=== PATIENT | male | born 1960 | race Caucasian/White ===

== ENCOUNTER 2020-09-06 01:40 | Emergency (ER) | payer MEDICARE ==
[~2020-09-06 01:40] MED LIST: IBUPROFEN600 MG PO
[2020-09-06 03:37] LABS: HEMOGLOBIN 15.2 gm/dl (14.0-17.5); RED BLOOD COUNT 5.32 M/UL (4.20-5.50); WHITE BLOOD COUNT 9.4 K/UL (4.5-11.0)
[2020-09-06 04:24] LABS: BUN/CREATININE RATIO 18 (0-10)
== END 2020-09-06 04:45 | disposition home or self-care (01) ==
LOC: ER1 01:40
PROVIDERS: Physician Assistant
DX: R53.1 Weakness (principal); R45.1 Restlessness and agitation; E11.9 Type 2 diabetes mellitus without complications; I10 Essential (primary) hypertension; Z88.0 Allergy status to penicillin
CPT/HCPCS: 80053; 81001; 82550; 82553; 83874; 84484; 85025; 99284; J7030